=== PATIENT | female | born 1965 | race Asian ===

== ENCOUNTER 2016-06-22 18:55 | Emergency (ER) | payer OTHER ==
[~2016-06-22] VITALS: Ht 167.6 cm; Wt 85.3 kg
== END 2016-06-22 20:28 | disposition home or self-care (01) ==
LOC: ED 18:55
DX: I10 Essential (primary) hypertension (principal); Z72.820 Sleep deprivation; R25.1 Tremor, unspecified
CPT/HCPCS: 99283

== ENCOUNTER 2017-04-24 05:48 | Emergency (ER) | payer OTHER ==
[~2017-04-24] VITALS: Ht 167.6 cm; Wt 81.6 kg
[2017-04-24] MEDS ORDERED: CLONIDINE HCL0.1 MG PO (06:28)
[2017-04-24] MEDS ORDERED: XANAX XR2 MG OR (06:29)
[2017-04-24] MEDS ORDERED: ESCITALOPRAM20 MG PO (06:32)
[2017-04-24 07:23] LABS: PLATELET COUNT 159 K/uL (152-353)
[2017-04-24 07:33] LABS: POTASSIUM 3.7 mmol/L (3.6-5.2)
[2017-04-24 09:30] VITALS: BP 152/88; TEMP 97.6
== END 2017-04-24 09:30 | disposition home or self-care (01) ==
LOC: ED 05:48
PROVIDERS: Specialist
DX: F12.10 Cannabis abuse, uncomplicated (principal); F14.10 Cocaine abuse, uncomplicated; F10.10 Alcohol abuse, uncomplicated; I10 Essential (primary) hypertension; R00.1 Bradycardia, unspecified
CPT/HCPCS: 80053; 80307; 80320; 81000; 82550; 82553; 83605; 84484; 85027; 99284; J0360; J2405; J2550; J3490

== ENCOUNTER 2019-01-22 15:19 | Outpatient (CLI) | payer OTHER ==
[~2019-01-22 15:19] MED LIST: CLONIDINE HCL0.1 MG PO; ESCITALOPRAM20 MG PO; XANAX XR2 MG OR
== END 2019-01-22 15:23 | disposition short-term general hospital (02) ==
LOC: AMB 15:19
DX: M54.9 Dorsalgia, unspecified (principal); M54.2 Cervicalgia; R07.9 Chest pain, unspecified; R42 Dizziness and giddiness; R11.2 Nausea with vomiting, unspecified; M79.603 Pain in arm, unspecified; M79.606 Pain in leg, unspecified; W10.9XXA Fall (on) (from) unspecified stairs and steps, initial encounter; Y92.89 Other specified places as the place of occurrence of the external cause
CPT/HCPCS: A0425; A0427

== ENCOUNTER 2019-01-22 15:28 | Emergency (ER) | payer OTHER ==
[~2019-01-22] VITALS: Ht 167.6 cm; Wt 83.9 kg
[2019-01-22 16:23] LABS: PLATELET COUNT 202 K/uL (152-353)
[2019-01-22 16:36] LABS: SODIUM 139 mmol/L (136-145)
[2019-01-22 17:07] LABS: POTASSIUM 3.9 mmol/L (3.6-5.2)
[2019-01-22 17:11] LABS: PARTIAL THROMBOPLASTIN TIME 27.2 SECONDS (24.5-33.6)
[2019-01-22 19:50] VITALS: BP 144/86; TEMP 98.2
== END 2019-01-22 19:50 | disposition still patient (30) ==
LOC: ED 15:28
PROVIDERS: Hospitalist
PROC: 0T9B70Z Drainage of Bladder with Drainage Device, Via Natural or Artificial Opening (ICD-10-PCS; principal; 2019-01-22)
DX: R55 Syncope and collapse (principal); I63.9 Cerebral infarction, unspecified
CPT/HCPCS: 36415; 51702; 80053; 80320; 82550; 82553; 83880; 84484; 85027; 85610; 85730; 93005; 96365; 96375; 96376; 99285; J0360; J2405; J2997

== ENCOUNTER 2019-08-10 15:47 | Outpatient (CLI) | payer OTHER | END 2019-08-10 21:42 | disposition home or self-care (01) | LOC: US 15:47 | DX: Z12.31 Encounter for screening mammogram for malignant neoplasm of breast (principal); I10 Essential (primary) hypertension; Z86.73 Personal history of transient ischemic attack (TIA), and cerebral infarction without residual deficits; I48.91 Unspecified atrial fibrillation; J45.909 Unspecified asthma, uncomplicated; F41.9 Anxiety disorder, unspecified; E78.5 Hyperlipidemia, unspecified; M79.605 Pain in left leg; K21.9 Gastro-esophageal reflux disease without esophagitis; I25.2 Old myocardial infarction; J06.9 Acute upper respiratory infection, unspecified ==

== ENCOUNTER 2019-10-20 14:42 | Outpatient (CLI) | payer OTHER | END 2019-10-20 23:17 | disposition home or self-care (01) | LOC: RESP 14:42 | DX: I10 Essential (primary) hypertension (principal); I48.91 Unspecified atrial fibrillation; R07.89 Other chest pain; R00.2 Palpitations; I25.2 Old myocardial infarction; R01.2 Other cardiac sounds; R92.8 Other abnormal and inconclusive findings on diagnostic imaging of breast; R06.02 Shortness of breath ==

== ENCOUNTER 2019-11-02 11:14 | Outpatient (CLI) | payer OTHER | END 2019-11-02 23:37 | disposition home or self-care (01) | LOC: MAMMO 11:14 | DX: R92.8 Other abnormal and inconclusive findings on diagnostic imaging of breast (principal) ==

== ENCOUNTER 2019-11-07 08:56 | Outpatient (CLI) | payer OTHER ==
[~2019-11-07] VITALS: Ht 167.6 cm; Wt 91.2 kg
== END 2019-11-07 20:23 | disposition home or self-care (01) ==
LOC: NM 08:56
DX: I10 Essential (primary) hypertension (principal); I48.91 Unspecified atrial fibrillation; R07.89 Other chest pain; R00.2 Palpitations; I25.2 Old myocardial infarction; R01.2 Other cardiac sounds
CPT/HCPCS: A9500; J2785

== ENCOUNTER 2021-02-27 22:49 | Observation (INO) | payer OTHER ==
[~2021-02-27] VITALS: Ht 170.2 cm; Wt 86.7 kg
[2021-02-27 22:49] VITALS: BP 145/99; TEMP 98.9
[2021-02-27 23:20] LABS: PLATELET COUNT 192 K/uL (152-353)
[2021-02-27 23:28] LABS: POTASSIUM 3.8 mmol/L (3.6-5.2)
[2021-02-27 23:30] VITALS: BP 151/98
[2021-02-27 23:41] LABS: PARTIAL THROMBOPLASTIN TIME 23.8 SECONDS (24.5-33.6)
[2021-02-28] VITALS: BP 135/90
[2021-02-28 00:30] VITALS: BP 117/72
[2021-02-28 01:00] VITALS: BP 120/76
[2021-02-28 01:30] VITALS: BP 128/81
--- NOTE | 2021-02-28 02:30 | NUR ---
PT ARRIVED TO MED SURG AT 0158 ON A STRETCHER WITH AN DIRECTOR OF HOME HEALTH SERVICES. PT IS ALERT AND ORIENTED AT PRESENT. PT FOLLOWS COMMANDS WITHOUT COMPLICATIONS. PT IS NPO STATUS AT PRESENT. PT AMBULATES TO BATHROOM. TRANSFERS WITHOUT ASSISTANCE. PT IS FALL PRECAUTION. PT GAIT IS UNSTEADY. RESPIRATION ARE EVEN AND UNLABORED. PT RESPOND TO QUESTIONS APPORIATELY. PT VOICE TAKING HOME MEDS 02/27/21. VITAL SIGN WITHIN NORMAL LIMITS. PT ORIENTED TO ROOM, BATHROOM, AND CALL LIGHT.
[2021-02-28 03:24] VITALS: BP 161/99; TEMP 98.1; Ht 170.2 cm; Wt 86.7 kg
[2021-02-28 04:00] VITALS: BP 161/99; TEMP 98.1
--- NOTE | 2021-02-28 04:00 | NUR ---
SITTER IN PT ROOM PRESS THE CALL LIGHT AND STATED" SHES HAVING A SEZIURE," UPON ENTRY INTO THE ROOM PT WAS JUST LAYING IN THE BED, EYES CLOSED TIGHT, AND WILL SHAKE HEAD SIDE TO SIDE WHEN ASKED A QUESTION. WITHIN IN SEVERAL MINUTES PATIENT WAS AWAKE AND ALERT TALKING TO STAFF AND REQUESTING A DRINK. PT VITALS OBTAINED AND 98.3, 20, 70, 154/86, 99%. PT VOICED HAVING A HEADACHE. NOTIFIED.
--- NOTE | 2021-02-28 18:05 | NUR ---
PATIENT SIGNED OUT AMA. PERIPHERAL IV D/C. PATIENT WHEELED OUT TO PERSONAL VEHICLE WITH FAMILY DRIVING.
== END 2021-02-28 18:00 | disposition left against medical advice (07) ==
LOC: ED 22:49 → MED/SURG 02-28 00:20
PROVIDERS: ADMIT Emergency Medicine; ATTEND Internal Medicine Endocrinology, Diabetes & Metabolism
DX: G40.89 Other seizures (principal); I10 Essential (primary) hypertension; I48.91 Unspecified atrial fibrillation; Z86.73 Personal history of transient ischemic attack (TIA), and cerebral infarction without residual deficits
CPT/HCPCS: 80053; 80307; 82550; 83880; 84484; 85027; 85610; 85730; 87635; 93005; 99220; 99284; G0378; J2060; U0003